=== PATIENT | male | born 1950 | race Caucasian/White ===

== ENCOUNTER 2019-11-09 08:02 | Day surgery (SDC) | payer MEDICARE ==
[2019-11-07 15:05] VITALS: BMI 29.1
[~2019-11-09 08:02] MED LIST: DEXAMETHASONE SOD PHOSPHATE 10 MG/ML 1 ML VIAL IV ONE; HEPARIN SODIUM,PORCINE 5,000 UNIT/ML 1 ML VIAL SQ ONE; LACTATED RINGERS 1,000 ML IV SCH; LIDOCAINE 1% 20 ML VIAL (10MG/ML) FOR IV START INTRADERMA PRN; METOCLOPRAMIDE 5 MG/ML 2 ML VIAL IVP PRN; ONDANSETRON 4 MG/2 ML VIAL IVP ONE; ONDANSETRON 4 MG/2 ML VIAL IVP PRN
[2019-11-09 08:36] VITALS: RESP 16
[2019-11-09] MEDS ORDERED: BUPIVACAIN-EPI 0.25%-1:200,000 30 ML VIAL SQ ONE ×3 (09:50→11:24)
--- NOTE | 2019-11-09 09:54 | P.GSHP ---
History of Present Illness H&P Date: 11/09/19 Chief Complaint: Umbilical hernia 69-year-old male has complaints of 2 separate bulges at the umbilicus. These are nonreducible. Mild pain at times. No prior repair. History of previous inguinal hernia repair in the past. No nausea or vomiting. No change in bowel habits. Past Medical History Past Medical History: GERD/Reflux, Hyperlipidemia Additional Past Medical History / Comment(s): umbilical hernia History of Any Multi-Drug Resistant Organisms: None Reported Past Surgical History: Hernia Repair, Orthopedic Surgery, Tonsillectomy Additional Past Surgical History / Comment(s): inguinal hernia repair, left knee surgery for sports injury, Past Anesthesia/Blood Transfusion Reactions: No Reported Reaction Smoking Status: Never smoker - Past Family History Sister(s) Family Medical History: Cancer Mother Family Medical History: Cancer Father Additional Family Medical History / Comment(s): lung disease Medications and Allergies Home Medications Medication Instructions Recorded Confirmed Type Aspirin 81 mg PO DAILY 04/28/15 11/07/19 History Multivit-Min/FA/Lycopene/Lut 1 tab PO DAILY 04/28/15 11/07/19 History [Centrum Silver Tablet] [place]-3 Fatty Acids/Fish Oil [Fish 1 each PO DAILY 04/28/15 11/07/19 History Oil 1,000 mg Softgel] Omeprazole [PriLOSEC] 20 mg PO DIRECTED PRN 04/28/15 11/09/19 History Allergies Allergy/AdvReac Type Severity Reaction Status Date / Time No Known Allergies Allergy Verified 11/09/19 08:38 Surgical - Exam Vital Signs Temp Pulse Resp BP Pulse Ox 97.8 F 63 16 138/73 95 11/09/19 08:35 11/09/19 08:35 11/09/19 08:35 11/09/19 08:35 11/09/19 08:35 Physical exam: General: Well-developed, well-nourished HEENT: Normocephalic, sclerae nonicteric Abdomen: Nontender, nondistended, incarcerated umbilical hernia with 2 separate suspected fascial defects Extremities: No edema Neuro: Alert and oriented Assessment and Plan (1) Incarcerated umbilical hernia Narrative/Plan: Will proceed with repair incarcerated umbilical hernia with mesh. Risks of bleeding, infection, recurrence, bladder and bowel injury, numbness, nerve injury, conversion to an open procedure were discussed with the patient. The patient understands and wishes to proceed. Current Visit: Yes Status: Acute Code(s): K42.0 - UMBILICAL HERNIA WITH O BSTRUCTION, WITHOUT GANGRENE SNOMED Code(s): 452635760
[2019-11-09] MEDS ORDERED: PROPOFOL 10 MG/ML 20 ML VIAL IV ONE (10:01)
[2019-11-09] MEDS ORDERED: MIDAZOLAM 2 MG/2 ML VIAL ONE (10:01)
[2019-11-09] MEDS ORDERED: LIDOCAINE 1% INJ 10MG/ML (20 ML MDV) ONE (10:01)
[2019-11-09] MEDS ORDERED: NEOSTIGMINE 1 MG/ML 10 ML VIAL ONE (10:01)
[2019-11-09] MEDS ORDERED: fentaNYL (PF) 50 MCG/ML 2 ML AMP ONE (10:01)
[2019-11-09] MEDS ORDERED: PHENYLEPHRINE-0.9% NACL SYG 1 MG/10 ML SYRINGE ONE (10:01)
[2019-11-09] MEDS ORDERED: GLYCOPYRROLATE 0.2 MG/ML 2 ML VIAL ONE (10:01)
[2019-11-09] MEDS ORDERED: ROCURONIUM BROMIDE 10 MG/ML 10 ML VIAL IV ONE (10:01)
[2019-11-09] MEDS ORDERED: SUCCINYLCHOLINE CHLORIDE 100 MG/5 ML SYR IV ONE (10:01)
[2019-11-09] MEDS ORDERED: NALOXONE 0.4 MG/ML 1 ML VIAL IV PRN (11:31)
[2019-11-09] MEDS ORDERED: HYDROcodone/APAP 5-325MG 1 EACH TAB PO PRN (11:31)
[2019-11-09 11:44] VITALS: TEMP 96.9
--- NOTE | 2019-11-09 11:53 | P.OP ---
Date of Procedure: 11/09/19 Procedure(s) Performed: PREOPERATIVE DIAGNOSIS: Incarcerated umbilical hernia POSTOPERATIVE DIAGNOSIS: Same, incarcerated ventral hernia PROCEDURE: Repair incarcerated umbilical and ventral hernia with mesh SURGEON: Sarah EBL: Minimal ANESTHESIA: General COMPLICATIONS: None OPERATIVE PROCEDURE: The patient was placed in the operating table in the supine position. A left periumbilical incision was made using the scalpel. The subcutaneous tissues were dissected bluntly. The patient had a total of 3 her karl sacs identified in the subcutaneous tissues. To these were present at the base of the umbilicus and one was above that which was considered a ventral hernia. All 3 of these fascial defects were included into one opening. The edges of the fascial defects were debrided. The hernia sac was excised. A portion of the omentum was also excised. The diameter of the fascia was 4 cm. The 6.4 cm ventral ex mesh was chosen. This was placed in the preperitoneal space after the space was mobilized using electrocautery. The mesh was placed beneath the fascia. This was sutured in place using trans-fascial 0 Ethibond sutures. The defect was closed horizontally using vest over pants interrupted mattress 0 Ethibond sutures. The folding edge was tacked down using 0 Ethibond sutures as well. The subcutaneous tissues were reapproximated using inverted 3- 0 Vicryl sutures. The umbilicus was tacked back down to the fascia using a 3-0 Vicryl suture. The skin was closed using 4-0 Monocryl sutures. Skin glue and sterile dressings were then applied. DISPOSITION: Stable to recovery room
[2019-11-09] MEDS ORDERED: KETOROLAC 30 MG/ML 1 ML VIAL IVP ONE (12:14)
[2019-11-09] MEDS: HYDROmorphone 0.5 MG/0.5 ML SYRINGE IVP PRN ×2 (12:14→12:19)
[2019-11-09] MEDS ORDERED: ACETAMINOPHEN TAB 500 MG TAB PO ONE (12:56)
[2019-11-09 13:10] VITALS: BP 141/70; PULSE 55
== END 2019-11-09 13:42 | disposition home or self-care (01) ==
LOC: OR 08:02
PROVIDERS: ATTEND Surgery
DX: K43.6 Other and unspecified ventral hernia with obstruction, without gangrene (principal); K42.0 Umbilical hernia with obstruction, without gangrene; E78.5 Hyperlipidemia, unspecified; K21.9 Gastro-esophageal reflux disease without esophagitis; Z79.82 Long term (current) use of aspirin; Z90.89 Acquired absence of other organs; Z80.9 Family history of malignant neoplasm, unspecified; Z83.6 Family history of other diseases of the respiratory system
CPT/HCPCS: 88305; 88302; 49561; 49568; C1781; J2250; J1644; J1100; J2710; J0690; J2405; J2001; J3010; J1885; J2370; J0330; J2704; J1170

== ENCOUNTER → 2023-09-21 | Outpatient (CLI) | payer MEDICARE ==
--- NOTE | 2023-09-21 17:51 | XR ---
EXAMINATION TYPE: XR chest 2V DATE OF EXAM: 09/21/2023 4:18 PM COMPARISON: None TECHNIQUE: XR chest 2V Frontal and lateral views of the chest. CLINICAL INDICATION:Male, 73 years old with history of R05.9 COUGH; FINDINGS: Lungs/Pleura: There is no evidence of pleural effusion, focal consolidation, or pneumothorax. Pulmonary vascularity: Unremarkable. Heart/mediastinum: Cardiomediastinal silhouette is unremarkable. Musculoskeletal: No acute osseous pathology. Bilateral AC joint arthropathy. 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 IMPRESSION: No acute cardiopulmonary disease/process.
== END | disposition home or self-care (01) ==
LOC: RADXRMAIN 16:01
PROVIDERS: ATTEND Internal Medicine
DX: R05.9 Cough, unspecified (principal)
CPT/HCPCS: 71046

== ENCOUNTER → 2023-10-18 | Outpatient (CLI) | payer MEDICARE ==
--- NOTE | 2023-10-18 09:28 | US ---
EXAMINATION TYPE: US abdomen limited DATE OF EXAM: 10/18/2023 COMPARISON: NONE CLINICAL INDICATION: Male, 73 years old with history of R10.9 UNSPECIFIED ABDOMINAL PAIN; pain TECHNIQUE: Multiple sonographic images of the right upper quadrant are obtained. FINDINGS: EXAM MEASUREMENTS: Liver Length: 17 cm Gallbladder Wall: .2 cm CBD: .3 cm Right Kidney: 9.6 x 4.7 x 4.2 cm [employer] NOTES: Pancreas: Obscured by bowel gas Liver: Increased attenuation Gallbladder: No stones seen Evidence for sonographic Garza's sign: No CBD: wnl Right Kidney: No hydronephrosis or masses seen IMPRESSION: Hepatic steatosis without evidence for acute process.
== END | disposition home or self-care (01) ==
LOC: RADUSWWP 08:13
PROVIDERS: ATTEND Internal Medicine
DX: K76.0 Fatty (change of) liver, not elsewhere classified (principal)
CPT/HCPCS: 76705

== ENCOUNTER → 2024-04-20 | Outpatient (CLI) | payer MEDICARE ==
[2024-04-20 15:15] LABS: Basophils # (A) 0.04 X 10*3/uL (0.00-0.10); Basophils % (A) 0.5 %; Eosinophils # (A) 0.13 X 10*3/uL (0.04-0.35); Eosinophils % (A) 1.7 %; HCT 42.3 % (39.6-50.0); HGB 13.4 g/dL (13.0-17.0); Lymphocytes # (A) 1.42 X 10*3/uL (0.90-5.00); MCH 28.7 pg (27.0-32.0); MCHC 31.7 g/dL (32.0-37.0); MCV 90.6 FL (80.0-97.0); Mean Platelet Volume 9.9 FL (9.5-12.2); Monocytes # (A) 0.63 X 10*3/uL (0.20-1.00); Monocytes % (A) 8.4 %; NRBC Per 100 WBC 0 X 10*3/uL (0.00-0.01); Neutrophils # (A) 5.21 X 10*3/uL (1.80-7.70); Platelet Count 296 X 10*3/uL (140-440); RBC 4.67 X 10*6/uL (4.40-5.60); RDW 13.2 % (11.5-14.5); WBC 7.46 X 10*3/uL (4.50-10.00)
== END | disposition home or self-care (01) ==
LOC: LABPAT 04-19 10:00
PROVIDERS: ATTEND Surgery
DX: Z01.818 Encounter for other preprocedural examination (principal); K40.90 Unilateral inguinal hernia, without obstruction or gangrene, not specified as recurrent
CPT/HCPCS: 85025; 86850; 86900; 86901; 93005

== ENCOUNTER → 2024-05-07 | Outpatient (CLI) | payer MEDICARE ==
--- NOTE | 2024-05-07 19:25 | MR ---
EXAMINATION TYPE: MR brain wo/w con DATE OF EXAM: 05/07/2024 COMPARISON: None HISTORY: Headaches, Double vision in both eyes TECHNIQUE: Multiplanar, multisequence images of the brain and brainstem is performed without and with IV contras t, utilizing 8 mL intravenous Gadavist . FINDINGS: On the T1-weighted sagittal images, the midline structures including the craniovertebral junction rel ationships are normal. The ventricles, basal cisterns and sulci over the convexities are within normal limits and there is n o mass effect or shift of the midline structures. There are a few small focal areas of abnormal increased signal intensity in the white matter of the f rontal lobes which are nonspecific findings and most likely reflect mild chronic ischemic white matte r change. Based on the diffusion-weighted images, there is no diffusion restriction or acute ischemic event. Fo llowing contrast administration, there is no pathological enhancement throughout the brain parenchyma . The posterior fossa including the brainstem, fourth ventricle and cerebellar pontine angles appear no rmal. The intraorbital contents appear normal and symmetric. Visualized paranasal sinuses and mastoid air c ells are well aerated. IMPRESSION: Minimal nonspecific white matter changes with no other significant abnormality seen.
--- NOTE | 2024-05-07 19:27 | MR ---
EXAMINATION TYPE: MR angio head wo con DATE OF EXAM: 05/07/2024 COMPARISON: None HISTORY: Headaches, Double vison in both eyes TECHNIQUE: Time of flight images focusing on the [place] were performed without contrast. Findings: There is no sizable aneurysm sac, vascular malformation or occlusive disease. IMPRESSION: No significant abnormality seen.
== END | disposition home or self-care (01) ==
LOC: RADMRIMAIN 16:52
PROVIDERS: ATTEND Internal Medicine
DX: R51.9 Headache, unspecified (principal); H53.2 Diplopia; R90.82 White matter disease, unspecified
CPT/HCPCS: 70544; 70553; A9585

== ENCOUNTER 2024-09-18 05:42 | Day surgery (SDC) | payer MEDICARE ==
[2024-09-18] MEDS ORDERED: LIDOCAINE 1% (10MG/ML) FOR IV START INTRADERMA PRN (06:11)
[2024-09-18 06:30] LABS: Glucose,Whole Blood 116 mg/dL (70-110)
[2024-09-18] MEDS: LACTATED RINGERS 1,000 ML IV SCH (06:34)
[2024-09-18] MEDS: IV FLUID CONTINUATION 1,000 ML IV ONE ×2 (06:34→09:00)
[2024-09-18] MEDS: ONDANSETRON 4 MG/2 ML VIAL IVP ONE (06:35)
[2024-09-18] MEDS: DEXAMETHASONE SOD PHOSPHATE 4 MG/ML 1 ML VIAL IV ONE (06:36)
[2024-09-18] MEDS: ACETAMINOPHEN TAB 500 MG TAB PO PRN (06:36)
[2024-09-18] MEDS: MIDAZOLAM 2 MG/2 ML VIAL IV PRN (06:58)
[2024-09-18] MEDS ORDERED: fentaNYL (PF) 50 MCG/ML 2 ML AMP IV PRN (07:00)
[2024-09-18] MEDS ORDERED: HYDROmorphone 0.5 MG/0.5 ML SYRINGE IVP PRN (07:00)
[2024-09-18] MEDS ORDERED: fentaNYL (PF) 50 MCG/ML 2 ML AMP IVP PRN (07:00)
[2024-09-18] MEDS: HEPARIN SODIUM,PORCINE 5,000 UNIT/ML 1 ML VIAL SQ PRN (07:22)
[2024-09-18] MEDS ORDERED: KETAMINE HCL IN 0.9 % NACL 50 MG/5 ML SYRINGE ONE (07:31)
[2024-09-18] MEDS ORDERED: PHENYLEPHRINE-0.9% NACL SYG 1,000 MCG/10 ML SYRINGE ONE (07:31)
[2024-09-18] MEDS ORDERED: NEOSTIGMINE 1 MG/ML 10 ML VIAL ONE (07:31)
[2024-09-18] MEDS ORDERED: KETOROLAC 15 MG/ML 1 ML VIAL ONE (07:31)
[2024-09-18] MEDS ORDERED: MIDAZOLAM 2 MG/2 ML VIAL ONE (07:31)
[2024-09-18] MEDS ORDERED: PROPOFOL 10 MG/ML 20 ML VIAL IV ONE (07:31)
[2024-09-18] MEDS ORDERED: SUCCINYLCHOLINE CHLORIDE 200 MG/10 ML VIAL IV ONE (07:31)
[2024-09-18] MEDS ORDERED: DEXAMETHASONE SOD PHOSPHATE 4 MG/ML 1 ML VIAL ONE (07:31)
[2024-09-18] MEDS ORDERED: ROPIVACAINE 5 MG/ML 30 ML VIAL ONE (07:31)
[2024-09-18] MEDS ORDERED: ROCURONIUM 10 MG/ML (5 ML VIAL) IV ONE (07:31)
[2024-09-18] MEDS ORDERED: fentaNYL (PF) 50 MCG/ML 2 ML AMP ONE (07:31)
[2024-09-18] MEDS ORDERED: LIDOCAINE 4% LTA KIT (4 ML) TOPICAL ONE (07:31)
[2024-09-18] MEDS ORDERED: GLYCOPYRROLATE 0.2 MG/ML 2 ML VIAL ONE (07:31)
[2024-09-18] MEDS ORDERED: SODIUM CHLORIDE 0.9% (PF) 10 ML VIAL ONE (07:31)
[2024-09-18] MEDS ORDERED: LIDOCAINE 1% INJ 10MG/ML (20 ML MDV) ONE (07:31)
[2024-09-18] MEDS: LIDOCAINE 1%-EPI 1:100,000 20 ML VIAL SQ ONE ×2 (07:35→07:59)
[2024-09-18 08:43] VITALS: TEMP 97
--- NOTE | 2024-09-18 08:46 | P.OP ---
Date of Procedure: 09/18/24 Preoperative Diagnosis: Right inguinal hernia Postoperative Diagnosis: Right inguinal hernia Procedure(s) Performed: Laparoscopic robotic laparoscopic assisted repair of right inguinal hernia Transversus abdominis plane block Anesthesia: MAC Surgeon: Ramiro Majano Estimated Blood Loss (ml): 5 Pathology: none sent Condition: stable Disposition: PACU Description of Procedure: The patient's placed on the operating table in the supine position. The patient received general anesthesia. The patient's abdomen was prepped and draped in usual sterile fashion. The skin was anesthetized 1% local Xylocaine at the incision sites. Using an 11 blade a skin incision was made at the umbilicus. The fascia was grasped with a Ethel and then the peritoneal cavity was entered with the Veress needle. Position of the Veress needle was confirmed with a positive drop test. After adequate insufflation a 5 mm trocar was placed into the peritoneal cavity. A four-quadrant transversus abdominis plane block was performed using 1% local Xylocaine. The Laparoscope was placed the peritoneal cavity. And a robotic 8 mm trocar was placed in the right lateral position and then another 8 mm robotic trochars placed in the left lateral position. The original 5 mm trocar was exchanged for a 12 mm trocar. The patient was placed in reverse Trendelenburg and then the patient was docked to the robot. Next the peritoneum over top of the hernia was incised and then using blunt and sharp dissection and electrocautery the hernia sac was dissected free from the floor of the inguinal canal. The hernia sac was completely reduced into the peritoneal cavity. And then using the Pro psychological anthropologist mesh the hernia was repaired. The peritoneum was then sutured with 20V lock suture. The patient was then undocked the robot. The needle was withdrawn from the peritoneal cavity. The umbilical trocar site was closed with 0 Ethibond suture. The skin was closed interrupted 3-0 Monocryl suture. Dermabond dressing was applied. Patient was sent to recovery in stable condition.
[2024-09-18 10:37] VITALS: RESP 18
[2024-09-18 11:20] VITALS: BP 129/77; PULSE 68
--- NOTE | 2024-09-26 12:29 | P.ANPRN ---
Procedure Note - Anesthesia - Nerve Block Performed Bilateral Erector Spinae Single Time Out Performed: Yes Date of Procedure: 09/18/24 Procedure Start Time: 06:57 Procedure Stop Time: 07:12 Location of Patient: PreOp Indication: Acute Post-Operative Pain, Requested by Surgeon Sedation Type: Sedate with meaningful contact maintained Preparation: Sterile Prep Position: Prone Needle Types: Pajunk Needle Gauge: 21 Ultrasound used to visualize needle placement: Yes Ultrasound used to observe medication spread: Yes Blood Aspirated: No Pain Paresthesia on Injection Noted: No Resistance on Injection: Normal Image Stored and Saved: Yes Events: Uneventful and Well Tolerated (Ropivacaine 0.5% 15 cc plus normal saline 10 cc plus dexamethasone 4 mg given bilaterally at L1)
== END 2024-09-18 11:31 | disposition home or self-care (01) ==
LOC: OR 05:42
PROVIDERS: ATTEND Surgery
DX: K40.90 Unilateral inguinal hernia, without obstruction or gangrene, not specified as recurrent (principal)
CPT/HCPCS: 49650; 64999; S2900